=== PATIENT | male | born 2000 | race Caucasian/White ===

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

== ENCOUNTER 2018-05-04 23:49 | Emergency (ER) | payer SELFPAY ==
[~2018-05-04] VITALS: Ht 180.3 cm; Wt 112.0 kg
[2018-05-04 23:52] VITALS: Ht 180.3 cm; Wt 112.0 kg
[2018-05-05 01:21] VITALS: BP 112/78
== END 2018-05-05 01:21 | disposition home or self-care (01) ==
LOC: ED 23:49
DX: L50.9 Urticaria, unspecified (principal); J45.909 Unspecified asthma, uncomplicated
CPT/HCPCS: J1200; J7512

== ENCOUNTER 2018-05-20 23:56 | Emergency (ER) | payer SELFPAY ==
[~2018-05-20] VITALS: Ht 180.3 cm; Wt 114.8 kg
[2018-05-21 00:52] VITALS: BP 144/82
== END 2018-05-21 00:52 | disposition home or self-care (01) ==
LOC: ED 23:56
DX: S70.311A Abrasion, right thigh, initial encounter (principal); S80.811A Abrasion, right lower leg, initial encounter; W22.8XXA Striking against or struck by other objects, initial encounter; Y93.64 Activity, baseball; Y92.89 Other specified places as the place of occurrence of the external cause; Y99.8 Other external cause status
CPT/HCPCS: J1885